=== PATIENT | female | born 1985 | race Two or more races ===

== ENCOUNTER 2017-08-27 15:54 | Emergency (ER) | payer OTHER ==
[~2017-08-27] VITALS: Ht 152.4 cm; Wt 73.5 kg
[2017-08-27 17:43] VITALS: BP 117/86
== END 2017-08-27 17:47 | disposition home or self-care (01) ==
LOC: ER 15:54
DX: O46.92 Antepartum hemorrhage, unspecified, second trimester (principal); Z3A.15 15 weeks gestation of pregnancy
CPT/HCPCS: 36415; 76801; 84702